=== PATIENT | female | born 1995 | race Two or more races ===

== ENCOUNTER 2018-02-07 14:19 | Emergency (ER) | payer MEDICAID ==
[~2018-02-07] VITALS: Ht 154.9 cm; Wt 49.0 kg
[2018-02-07 15:19] VITALS: BP 105/74
== END 2018-02-07 16:45 | disposition home or self-care (01) ==
LOC: ER 14:19
DX: R30.0 Dysuria (principal); R10.9 Unspecified abdominal pain; R39.15 Urgency of urination; R35.0 Frequency of micturition
CPT/HCPCS: 74176; 81025

== ENCOUNTER 2018-02-08 10:01 | Emergency (ER) | payer MEDICAID ==
[~2018-02-08] VITALS: Ht 154.9 cm; Wt 49.0 kg
[2018-02-08 10:45] LABS: Urine Bacteria FEW /hpf (None Seen); Urine Blood Negative /uL (Negative); Urine Mucus FEW (None Seen); Urine Specific Gravity 1.017 (1.001-1.035); Urine WBC 16 /hpf (0 - 5)
[2018-02-08 10:45] LABS: Basophils # (auto) 0 uL; Basophils % (auto) 0.5 % (0.0-2.0); Eosinophils # (auto) 0.2 uL; Eosinophils % (auto) 1.8 % (0.0-7.0); Hematocrit 39.4 % (36.0-46.0); Hemoglobin 13.3 g/dL (12.2-16.2); Lymphocytes # (auto) 1.1 uL; Lymphocytes % (auto) 12.1 % (10.0-50.0); Mean Corpuscular Hemoglobin 29.9 pg (28.0-32.0); Mean Corpuscular Hgb Conc. 33.8 g/dL (32.0-36.0); Mean Corpuscular Volume 88.5 fL (80.0-100.0); Monocytes # (auto) 0.5 uL; Monocytes % (auto) 5.7 % (0.0-12.0); Neutrophils # (auto) 7.1 uL; Neutrophils % (auto) 79.9 % (37.0-80.0); Platelet Count (auto) 259 10^3/uL (140-450); Red Blood Cells 4.46 10^6/uL (4.0-5.20); Red Cell Distribution Width 12.9 % (11.8-14.3); White Blood Cell 8.9 10^3/uL (4.4-10.8)
[2018-02-08 11:07] VITALS: BP 121/66
== END 2018-02-08 12:15 | disposition home or self-care (01) ==
LOC: ER 10:01
DX: R07.89 Other chest pain (principal); N39.0 Urinary tract infection, site not specified; Z32.01 Encounter for pregnancy test, result positive
CPT/HCPCS: 36415; 81001; 84702; 85025; 93005

== ENCOUNTER 2018-04-13 11:53 | Emergency (ER) | payer MEDICAID ==
[~2018-04-13] VITALS: Ht 152.4 cm; Wt 47.6 kg
[2018-04-13 15:46] VITALS: BP 114/67
== END 2018-04-13 15:58 | disposition home or self-care (01) ==
LOC: ER 11:53
DX: O26.851 Spotting complicating pregnancy, first trimester (principal); Z3A.01 Less than 8 weeks gestation of pregnancy
CPT/HCPCS: 36415; 76801; 76817; 81025; 84702

== ENCOUNTER 2019-05-15 19:54 | Emergency (ER) | payer MEDICAID ==
[~2019-05-15] VITALS: Ht 154.9 cm; Wt 54.0 kg
[2019-05-15 20:23] VITALS: BP 119/74
[2019-05-15 21:02] LABS: Basophils # (auto) 0 uL; Basophils % (auto) 0.1 % (0.0-2.0); Eosinophils # (auto) 0 uL; Hematocrit 41.6 % (36.0-46.0); Hemoglobin 14.4 g/dL (12.2-16.2); Lymphocytes # (auto) 0.8 uL; Mean Corpuscular Hgb Conc. 34.5 g/dL (32.0-36.0); Mean Corpuscular Volume 86.9 fL (80.0-100.0); Monocytes # (auto) 0.4 uL; Monocytes % (auto) 4.1 % (0.0-12.0); Neutrophils # (auto) 8.5 uL; Neutrophils % (auto) 87.8 % (37.0-80.0); Platelet Count (auto) 281 10^3/uL (140-450); Red Blood Cells 4.79 10^6/uL (4.0-5.20); Red Cell Distribution Width 12.6 % (11.8-14.3); White Blood Cell 9.7 10^3/uL (4.4-10.8)
[2019-05-15 21:18] LABS: Albumin 3.9 g/dL (3.4-5.0); BUN/Creatinine Ratio 11.6; Calcium 9.4 mg/dL (8.5-10.1); Magnesium 1.6 mg/dL (1.6-2.6); Potassium 3.6 mmol/L (3.5-5.1)
[2019-05-15 21:21] LABS: Bilirubin, Total 0.7 mg/dL (0.2-1.0); Total Protein 8.1 g/dL (6.4-8.2)
[2019-05-15 21:26] LABS: Urine Bacteria NONE SEEN /hpf (None Seen); Urine Blood Negative /uL (Negative); Urine Mucus MODERATE (None Seen); Urine WBC 19 /hpf (0 - 5)
== END 2019-05-15 22:32 | disposition left against medical advice (07) ==
LOC: ER 19:56
DX: O20.8 Other hemorrhage in early pregnancy (principal); O21.8 Other vomiting complicating pregnancy; Z3A.10 10 weeks gestation of pregnancy; Z53.21 Procedure and treatment not carried out due to patient leaving prior to being seen by health care provider
CPT/HCPCS: 36415; 80053; 81001; 83735; 84702; 85025

== ENCOUNTER 2024-01-29 16:22 | Observation (INO) | payer MEDICAID ==
[~2024-01-29] VITALS: Ht 154.9 cm; Wt 59.0 kg
[2024-01-29] MEDS ORDERED: LACTATED RINGER'S 1,000 ML IV ONE (18:00)
== END 2024-01-29 19:51 | disposition home or self-care (01) ==
LOC: LDRP 16:22
PROVIDERS: ADMIT Obstetrics & Gynecology; ATTEND Obstetrics & Gynecology
DX: Z36.89 Encounter for other specified antenatal screening (principal); Z3A.32 32 weeks gestation of pregnancy; W01.0XXA Fall on same level from slipping, tripping and stumbling without subsequent striking against object, initial encounter; Y93.89 Activity, other specified; Y92.512 Supermarket, store or market as the place of occurrence of the external cause; Y99.8 Other external cause status
CPT/HCPCS: 59025; 76805; 76818; 81002; 94760; 96360; 96361; G0378; 96365